=== PATIENT | male | born 1975 | race Caucasian/White ===

== ENCOUNTER → 2019-08-11 08:31 | Outpatient (CLI) | payer OTHER ==
--- NOTE | 2019-08-15 08:28 | EC ---
PATIENT:FLORA WILLS DATE OF SERVICE: 08/11/19 SEX: M MEDICAL RECORD: [id number] DATE OF : 73 LOCATION:[facility] AGE OF PATIENT: 44 ADMISSION DATE: 08/11/19 REFERRING PHYSICIAN: INTERPRETING PHYSICIAN: GI PATEL MD ECHOCARDIOGRAM REPORT ECHO CHARGES 4 ECHO COMPLETE Date: 08/11/19 CLINICAL DIAGNOSIS: HTN/ANGINA/PALPITATIONS ECHOCARDIOGRAPHIC MEASUREMENTS (adult normal given) AC root (d.<3.7cm) 3.2 cm LV Septum d (<1.2 cm> 1.3 cm Valve Excursion 1.8 cm LV Septum (systole) 1.7 cm Left Atria (s.<4.0cm> 3.8 cm LVPW d(<1.2cm) 1.5 cm RV (d.<2.3cm) 3.6 cm LVPW (sytole) 1.7 cm LV diastole(<5.6CM) 5.7 cm MV E-F(>70mm/sec) cm LV systole 3.3 cm LVOT Diameter 2.4 cm MV exc.(>10mm) 2.1 cm Est.ejection fraction (50-75%) % DOPPLER: LVIT cm/sec A 80.0 cm/sec E 72.0 cm/sec LA cm/sec RVSP 20 mmHg LVOT 80 cm/sec AOP1/2T m/s Asc. Ao 129 cm/sec RVOT 92 cm/sec RA cm/sec PA 134 cm/sec AV Gradient Peak 6.62 mmHg AV Mean 3.66 mmHg AV Area 2.5 cm MV Gradient Peak 3.49 mmHg MV Mean 1.54 mmHg MV Area cm COMMENTS: Diet Consultant: 2 FLAVIO AHUMADA [place] Hammerer: 3 Dr. Jeronimo TAPE# PACS Pericardial Effusion N DATE OF SERVICE: Adequate 2-D echo, Color-Flow and Spectral Doppler, and M-mode LVH is present. LV internal dimensions are normal. Wall motion is normal. EF greater than or equal to 50% to 55%. Aortic valve is tricuspid. No evidence of stenosis by Doppler interrogation. Left atrium is normal. Mitral valve shows no prolapse. Trace MR. Right sided chambers are grossly normal. Trace TR. TRANSINT:[id number] Voice Confirmation ID: [id number] DOCUMENT ID: [id number] ECHOCARDIOGRAM REPORT [id number] FLORA WILLS,GI Trejo MD at 0828 CC: [id number] DICTATION DATE: 08/12/19 1544 WOOL BATTING WORKER: 08/12/19 2358 DEP CLI 08/11/19 [id number] [place] [address]
== END | disposition home or self-care (01) ==
LOC: D.HCCECHO 08:31
PROVIDERS: ATTEND Internal Medicine Cardiovascular Disease
DX: I10 Essential (primary) hypertension (principal); I20.9 Angina pectoris, unspecified

== ENCOUNTER 2019-08-17 11:09 | Outpatient (CLI) | payer OTHER ==
[~2019-08-17] VITALS: Ht 182.9 cm; Wt 152.7 kg
--- NOTE | ~2019-08-17 | HEMODYNAMI ---
PATIENT:FLORA WILLS MEDICAL RECORD: [id number] : 73 LOCATION:[facility] ADMISSION DATE: 08/17/19 Generatedon:08/17/201914:04 Patient name: FLORA WILLS Patient #: [id number] SSN: [id number] : 1975 Date of study: 08/17/2019 Page: Of Hemodynamic Procedure Report Patient Data Patient Demographics Procedure consent was obtained First Name: FLOAR Gender: Male Last Name: ELMA : 1975 Patient #: [id number] Age: 44 year(s) Race: Unknown SSN: [id number] Additional ID: [id number] Contact details [address]: [address] [place] [address] State: [place] City: [place] Zip code: [address] Past Medical History Allergies: No known allergies Admission Admission Data Admission Date: 08/17/2019 Admission Time: 11:09 Arrival Date: 08/17/2019 Arrival Time: 0:00 [facility] #: [id number] Height (in.): 71.65 BSA: 2.64 (m2) Height (cm.): 182 BMI: 45.89 (kg/m2) Weight (lbs.): 335.1 Weight (kg.): 152 Lab Results Lab Result Date: 08/17/2019 Lab Result Time: 0:00 Biochemistry Name Units Result Min Max BUN mg/dl 15 --(--*-)-- 7 18 Creatinine mg/dl 1.1 --(--*-)-- 0.6 1.3 CBC Name Units Result Min Max Hemoglobin g/dl 16.2 --(--*-)-- 13.5 17.5 Procedure Procedure Types Cath Procedure Diagnostic Procedure C [facility] w/Coronaries Procedure Description Procedure Date Procedure Date: 08/17/2019 Procedure Start Time: 13:53 Procedure End Time: 14:02 Procedure Staff Name Function Alok Ward MD Performing Physician Bianca Smimons RT Monitor Honey Mckeon RN Nurse Fior Mcnamara RT Scrub Indication Chest pain Procedure Data Cath Procedure Fluoroscopy Diagnostic fluoroscopy Total fluoroscopy Time: 1.1 time: 1.1 min min Diagnostic fluoroscopy Total fluoroscopy dose: 532 dose: 532 mGy mGy Contrast Material Contrast Material Type Amount (ml) Isovue 300 39 Entry Location Entry Primary Successful Side Size Upsize Upsize Entry Closure Catherine ccessful Closure Location (Fr) 1 (Fr) 2 (Fr) Remarks Device Remarks Radial Right 6 Fr Mechanical artery Short Compression Estimated blood loss: 10 ml Diagnostic catheters Device Type Used For End Catheter Placement DIAGNOSTIC [place] 110cm 5 Procedure Fr catheter ([id number]) Procedure Complications No complications Procedure Medications Medication Administration Route Dosage 0.9% NaCl I.V. 100 ml/hr Oxygen etCO2 Nasal cannula 2 l/min Lidocaine 2% added to field 20 Heparin Flush Bag added to field 2 bags (1000units/500ml NS) Radial Cocktail added to field 1 syringe (Verapamil 2mg/Nitro 400mcg/Heparin 1500units) Versed I.V. 2 mg Fentanyl I.V. 100 mcg Hemodynamics Rest BSA: 2.64 (m2) HGB: 16.2 (g/dl) O2 Consumption: Estimated: 322.8 (ml/min) O2 Con sumption indexed: Estimated:122.27 (ml/min/m) Heart Rate: 74 (bpm) Pressure Samples Time Site Value (mmHg) Purpose Heart Use Rate(bpm) 13:56 LV 161/20,22 Snapshot 85 13:56 AO 129/93(109) Pullback 91 13:56 LV 130/15,17 Pullback 91 Gradients Valve Time Site 1 Site 2 Mean SEP/DFP Peak To Heart Use (mmHg) (sec/min) Peak Rate (mmHg) (bpm) Aortic 13:56 LV AO 1 91 130/15,17 129/93(109) Calculations Valve P-P Mean Valve Index Valve Source Name Gradient Area Flow (cm2) Aortic 1 1 Snapshots Pre Cath Intra NCS Post Cath Vital Signs Time Heart Resp SPO2 etCO2 NIBP (mmHg) Rhythm Pain Sedation Rate (ipm) (%) (mmHg) Status Level (bpm) 13:38:47 76 11 100 36.2 128/80(110) NSR 0 (11) 10(A) , No pain 13:43:08 76 12 100 23.3 125/78(103) NSR 0 (11) 10(A) , No pain 13:47:22 75 17 100 33.1 120/72(96) NSR 0 (11) 10(A) , No pain 13:51:38 76 14 100 35.4 122/79(106) NSR 0 (11) 10(A) , No pain 13:55:54 75 13 100 33.1 130/78(105) NSR 0 (11) 10(A) , No pain 14:00:14 89 12 99 36.1 128/65(85) NSR 0 (11) 10(A) , No pain Medications Time Medication Route Dose Verified Delivered Reason Notes E ffectiveness by by 13:37:43 0.9% NaCl I.V. 100 Alok Honey used for ml/hr Ed Mike procedure MD ALARCON 13:37:48 Oxygen etCO2 2 l/min Alok Diasa used for Nasal [facility] Alejandro Mckeon procedure cannula MD ALARCON 13:37:54 Lidocaine 2% added 20ml Alok Dickinson [facility] MED[facility] 13:37:58 Heparin Flush added 2 bags Alok Dickinson used for Bag to Ed Ed procedure (1000units/500ml field MD MEDINA NS) 13:38:08 Radial Cocktail added 1 Alok Dickinson used for (Verapamil to syringe Ed Ed procedure 2mg/Nitro field MD MEDINA 400mcg/Heparin 1500units) 13:52:05 Versed I.V. 2 mg Alok Honey for St Alejandro Mckeon sedation MD ALARCON 13:52:16 Fentanyl I.V. 100 mcg Alok Méndez for Ed Mike sedation education research analyst Log Time Note 13:35:58 Patient Height : 71.65 inches 13:36:01 Patient Weight : 335.1 lbs 13:36:05 Arrival Date: 08/17/2019 12:00:00 AM 13:36:49 Lab Result : Hemoglobin 16.2 g/dl 13:36:49 Lab Result : Creatinine 1.1 mg/dl 13:36:49 Lab Result : BUN 15 mg/dl 13:36:55 Diagnostic Cath Status : Elective 13:37:22 Indication : Chest pain 13:37:35 Vital chart was started 13:37:36 Procedure Status Elective Heart Cath (OP). 13:37:39 Honey Mckeon RN sent for patient. Start room use. 13:37:40 Time tracking: Regular hours (M-F 7:00 - 5:00) 13:37:43 0.9% NaCl 100 ml/hr I.V. was administered by Honey Mckeon RN; used for procedure; Verbal order read back and verified. 13:37:45 Plan of Care:Hemodynamics will remain stable., Cardiac rhythm will remain stable., Comfort level will be maintained., Respiratory function will remain adequate., Patient/ family verbilizes understanding of procedure., Procedure tolerated without complication., Recovers from procedure without complications.. 13:37:48 Oxygen 2 l/min etCO2 Nasal cannula was administered by Honey Mckeon RN; used for procedure; Verbal order read back and verified. 13:37:50 Patient received from Pre/Post Procedure Room to [facility] 2 Alert and oriented. Tansferred to table in Supine position. 13:37:53 Signed procedure consent form obtained from patient. 13:37:54 Lidocaine 2% 20ml vial added to field was administered by Alok Ward MD; for local anesthetic; Verbal order read back and verified. 13:37:54 Warm blankets applied, and mariama hugger turned on for patient comfort. 13:37:55 Correct patient and procedure confirmed by team. 13:37:56 ECG and BP/O2 sat monitors applied to patient. 13:37:57 Baseline sample Acquired. 13:37:58 Heparin Flush Bag (1000units/500ml NS) 2 bags added to field was administered by Alok Ward MD; used for procedure; Verbal order read back and verified. 13:38:00 Rhythm: sinus rhythm 13:38:01 Full Disclosure recording started 13:38:06 H&P Date Dictated: 08/17/2019 Within 30 days and on chart.. 13:38:08 Radial Cocktail (Verapamil 2mg/Nitro 400mcg/Heparin 1500units) 1 syringe added to field was administered by Alok Ward MD; used for procedure; Verbal order read back and verified. 13:38:08 Pre-procedure instructions explained to patient. 13:38:17 Family in waiting room. 13:38:21 Patient NPO since Midnight. 13:38:26 Patient allergic to No known allergies 13:38:29 Is the patient allergic to Iodine/contrast media? No. 13:38:31 Is patient on blood thinner?No 13:38:34 Patient diabetic? No. 13:38:42 Snore? Yes 13:38:43 Sleep apnea? No 13:38:50 Patient pain scale 0/10 ?. 13:38:57 IV patent on arrival in left forearm with 0.9% NaCl at [facility]. 13:39:03 Lab results completed and on chart. 13:39:12 Right Radial & Right Groin area was prepped with chlora-prep and draped in sterile fashion 13:39:13 Alarms reviewed by R. N. 13:39:14 Sharps counted by scrub and verified by R.N. 13:47:15 ACIST Syringe (67304) opened to sterile field. 13:47:15 Bag Decanter () opened to sterile field. 13:47:16 Medline Cath Pack ([id number]) opened to sterile field. 13:47:17 ACIST Hand Control (98962) opened to sterile field. 13:47:18 ACIST Manifold (59102) opened to sterile field. 13:47:31 Use device set Radial Dx or PCI 13:47:33 ACIST Syringe (99991) opened to sterile field. 13:47:33 Medline Cath Pack ([id number]) opened to sterile field. 13:47:35 Bag Decanter () opened to sterile field. 13:47:35 ACIST Hand Control (64603) opened to sterile field. 13:47:36 ACIST Manifold (31798) opened to sterile field. 13:47:40 MBrace Wrist Support ([id number]) opened to sterile field. 13:47:43 EMERALD Guide Wire (902-142) opened to sterile field. 13:47:44 SHEATH 6FR RAIN (3473306) opened to sterile field. 13:48:24 2) 60-89 Mildly reduced kidney function, and other findings (as for stage 1) point to kidney disease. 13:49:35 Maximum allowable contrast dose (3.7 X eGFR X 0.75)213 ml. 13:50:18 Physician arrived 13:50:18 --------ALL STOP TIME OUT------ 13:50:19 Final Timeout: patient, procedure, and site verified with staff and physician. All members of the team are in agreement. 13:50:21 Right Radial & Right Groin site verified by team. 13:50:25 Fire Safety Assessment: A--An alcohol-based skin anteseptic being used preoperatively., C--Open oxygen or nitrous oxide is being used., D--An ESU, laser, or fiber-optic light is being used. 13:50:32 Physical assessment completed. ASA score P 3 - A patient with severe systemic disease as per Alok Ward MD. 13:50:36 Sedation plan: IV Moderate Sedation Medication:Versed, Fentanyl 13:52:05 Versed 2 mg I.V. was administered by Honey Mckeon RN; for sedation; Verbal order read back and verified. 13:52:16 Fentanyl 100 mcg I.V. was administered by Honey Mckeon RN; for sedation; Verbal order read back and verified. 13:53:44 Procedure started. 13:53:54 Local anesthetic to right radial artery with Lidocaine 2% by Alok Ward MD.INITIAL ACCESS ONLY 13:54:03 A 6 Fr Short sheath was inserted into the Right Radial artery 13:55:37 A DIAGNOSTIC [place] 110cm 5 Fr catheter (393108) was advanced over the wire and used for Procedure. 13:55:48 LV angiography performed. 13:56:41 EF : 55 % 13:56:45 LV hemodynamics recorded. 13:57:16 LCA angiography performed. 13:58:21 RCA angiography performed. 13:58:28 Catheter removed. 13:58:47 TR BAND Large ([id number]) opened to sterile field. 13:59:19 Sheath removed intact; hemostasis achieved with Mechanical Compression to the Right Radial artery. 13:59:22 Procedure ended.(Physican Out) 13:59:32 Fluoroscopy time 01.10 minutes. 13:59:35 Fluoroscopy dose: 532 mGy 13:59:35 Flurop Dose total: 532 13:59:40 Dose Area Product 24222 mGy/cm. 13:59:46 Contrast amount:Isovue 300 39ml. 13:59:50 Maximum allowable dose exceeded? No. 14:00:01 Lostant band inflated with 10cc of air. 14:00:03 Insertion/operative site no bleeding no hematoma. 14:00:06 Post Procedure Pulses reassessed and unchanged 14:00:22 Post-procedure physical assessment completed. ASA score P 2 - A patient with mild systemic disease as per Alok Ward MD. 14:00:28 Post procedure rhythm: unchanged. 14:00:33 Estimated blood loss: 10 ml 14:00:36 Post procedure instruction explained to patient.Patient verbalizes understanding. 14:01:24 Procedure and supply charges have been captured, reviewed, submitted and are correct. 14:02:11 Procedure Complication : No complications 14:02:14 Vital chart was stopped 14:02:22 [facility] Findings: MVD- MD will discuss options w/ pt 14:02:25 Operative report dictated upon procedure completion. 14:02:28 See physician's report for complete and final results. 14:02:30 Report given to Pre/Post Procedure Room. 14:02:32 Patient transfered to Pre/Post Procedure Room with Stretcher. 14:02:34 Procedure ended. 14:02:34 Full Disclosure recording stopped 14:02:40 End room use (Document Last) Device Usage Item Name Manufacture Quantity Catalog Hospital Part Current Minima l Lot# / Number Charge Number Stock Stock Serial# Code ACIST Acist 2 82234 023653 [id number] [id number] 20 Syringe Medical (85305) Systems Inc Bag Microtek 2 2001S 334117 05586 210134 5 Decanter Medical Inc. (2001S) Medline Medline 2 [id number] 723812 78042 132559 5 Cath Pack ([id number]) ACIST Hand Acist 2 14666 703910 699024 956292 5 Control Medical (79400) Systems Inc ACIST Acist 2 78904 353813 943486 485542 5 Manifold Medical (20620) Systems Inc MBrace Advanced 1 140-0250-00 586745 75342 309944 5 Wrist Vascular Support Dynamics ([id number]) EMERALD Cardinal 1 502-455 677253 626861 059440 5 Guide Wire Health (810-426) SHEATH 6FR Cardinal 1 8677273 609149 8448061 262047 5 [facility] (8364690) DIAGNOSTIC Terumo 1 40-2733 943238 830352 393920 5 [place] 110cm 5 Fr catheter (580343) TR BAND Terumo 1 [id number] 256844 692836 826073 40 Large ([id number]) Signature Audit Effort Stage Time Signature Unsigned Intra-Procedure 08/17/2019 Honey Mckeon 2:03:16 PM RN Intra-Procedure 08/17/2019 Bianca Simmons 2:03:35 PM RT(R) Intra-Procedure 08/17/2019 Alok Auguste 2:04:20 PM Alejandro Berger Performing Physician : Signature : Alok Ward MD Date : Time : Monitor : Bianca Simmons Signature : RT Date : Time : Nurse : Honey Mckeon RN Signature : Date : Time : [place] [address] [place] [address]
[2019-08-17] MEDS ORDERED: PROTONIX40 MG PO (12:19)
[2019-08-17] MEDS ORDERED: LISINOPRIL10 MG PO (12:19)
[2019-08-17 12:26] VITALS: BP 148/80; BMI 45.7
[2019-08-17 12:38] VITALS: BP 148/80; Ht 182.9 cm; Wt 152.7 kg
[2019-08-17 12:41] LABS: BASOPHILS 0.4 % (0-2); EOSINOPHILS 1.7 % (0-7); HEMATOCRIT 46.2 % (42.0-54.0); HEMOGLOBIN 16.2 g/dL (13.5-17.5); MCH 30.8 pg (26.0-34.0); MCHC 35.1 g/dL (31.0-37.0); MCV 87.8 fL (80.0-100.0); MEAN PLATELET VOLUME 12.2 fL (7.4-10.4); MONOCYTES 7.1 % (2-11); NEUTROPHILS 65.8 % (40-80); PLATELET COUNT 234 10x3/uL (130-400); RBC 5.26 10x6/uL (4.20-6.10); RDW 13.5 % (11.5-14.5); WBC 6.9 10x3/uL (4.8-10.8)
[2019-08-17 12:57] LABS: ALT (SGPT) 89 U/L (10-68); CALC OSMOLALITY 277 mosm/kg (275-300); CALCIUM 8.6 mg/dL (8.5-10.1); CHLORIDE - SERUM 104 mmol/L (98-107); CHOLESTEROL, TOTAL 161 mg/dL (0-200); CREATININE - SERUM 1.1 mg/dL (0.6-1.3); GLUCOSE 124 mg/dL (74-106); HDL CHOLESTEROL 40 mg/dL (32-96); LDL CHOLESTEROL 110 mg/dL (0-100); LDL-HDL RATIO 2.8 ratio (1.5-3.5); POTASSIUM - SERUM 4.3 mmol/L (3.5-5.1); SODIUM 138 mmol/L (136-145); TRIGLYCERIDE 56 mg/dL (30-200); UREA NITROGEN 15 mg/dL (7-18); eGFR NON AFRICAN AMERICAN 77 mL/min (90-120)
--- NOTE | 2019-08-17 14:10 | NUR ---
PT ARRIVED BY STRETCHER. PLACED ON MONITORS. ASSESSMENT COMPLETED. VSS. CALL LIGHT WITHIN REACH. FAMILY AT BEDSIDE.
--- NOTE | 2019-08-17 14:25 | NUR ---
PT SITTING UP IN BED. SET UP WITH SANDWICH TRAY AND DRINK. DENIES NAUSEA/PAIN AT THIS TIME. VSS. RIGHT WRIST TR BAND IN PLACE. NO BLEEDING/HEMATOMA NOTED. CALL LIGHT WITHIN REACH. FAMILY AT BEDSIDE.
--- NOTE | 2019-08-17 14:55 | NUR ---
RIGHT WRIST TR BAND IN PLACE. NO BLEEDING/HEMATOMA NOTED. 1cc OF AIR REMOVED FROM TR BAND. TOLERATED WELL. VSS. FAMILY AT BEDSIDE.
--- NOTE | 2019-08-17 15:10 | NUR ---
3cc OF AIR REMOVED FROM TR BAND. NO BLEEDING/HEMATOMA NOTED. CALL LIGHT WITHIN REACH. VSS. FAMILY AT BEDSIDE. RESTING COMFORTABLY.
--- NOTE | 2019-08-17 15:30 | NUR ---
4cc OF AIR REMOVED FROM TR BAND. NO BLEEDING/HEMATOMA NOTED. CALL LIGHT WITHIN REACH. FAMILY AT BEDSIDE.
--- NOTE | 2019-08-17 15:45 | NUR ---
PIV D/C'D WITH CATH TIP INTACT. TOLERATED WELL. Z BAND REMOVED AND DRESSING APPLIED. NO BLEEDING/HEMATOMA NOTED. PT INSTRUCTED TO GET DRESSED. FAMILY AT BEDSIDE TO ASSIST.
--- NOTE | 2019-08-17 16:00 | NUR ---
PT AMBULATED TO RESTROOM. VOIDED WITHOUT DIFFICULTY. STEADY GAIT NOTED. DISCUSSED DISCHARGE INSTRUCTIONS WITH PT AND PT'S FAMILY. THEY VOICED UNDERSTANDING. PT REFUSED WHEELCHAIR. AMBUALATED TO VEHICLE. STEADY GAIT NOTED. NO S/S OF DISTRESS NOTED. ALL BELONGINGS AND PAPERWORK IN HAND.
--- NOTE | 2019-08-18 14:13 | OP ---
PATIENT NAME: FLORA WILLS MEDICAL RECORD: [id number] :73 LOCATION:[facility] ADMISSION DATE: SURGEON: GI PATEL MD DATE OF OPERATION: 08/17/2019 PROCEDURE: Left heart catheterization, selective coronary angiography, right radial approach. CATHETERS: Radial sheath, [place] catheter. The procedure was well tolerated. The patient was returned to [place]. Sheath was removed. TR band was placed. FINDINGS: Left ventriculography in 30-degree GUTIERREZ view: Normal wall motion, normal systolic function. CORONARY ANATOMY: LEFT MAIN: Left main is free of disease. LAD: Free of disease in the diagonal system. CIRCUMFLEX: Free of disease in the marginal system. RIGHT CORONARY ARTERY: Dominant artery - large artery, free of disease. IMPRESSION: Normal LV systolic function. Normal coronary anatomy. TRANSINT:[id number] Voice Confirmation ID: [id number] DOCUMENT ID: [id number] GI PATEL MD at 1413 CC: [id number] DICTATION DATE: 08/17/19 1406 CARGO ROUTER: 08/17/192049 DEP CLI 08/17/19 [facility] [address] [place] [address]
== END 2019-08-17 16:00 | disposition home or self-care (01) ==
LOC: D.CATH 11:09
PROVIDERS: ATTEND Internal Medicine Interventional Cardiology
DX: R94.30 Abnormal result of cardiovascular function study, unspecified (principal); I20.9 Angina pectoris, unspecified